=== PATIENT | female | born 1975 | race Caucasian/White ===

== ENCOUNTER 2018-10-14 15:14 | Inpatient (IN) | payer OTHER ==
[~2018-10-14] VITALS: Ht 170.2 cm; Wt 115.7 kg
[~2018-10-14 15:14] MED LIST: BYDUREON P2 MG/0.65; CEFU50SU; Humalog100 UNIT/1 SC; IBUP600 PO; INSULANPEN; METF500 PO; Prinivil10 MG PO; SULTRIDS
[2018-10-14 15:52] LABS: Source, Urine Clean Catch
[2018-10-14 15:53] LABS: Bilirubin, Urine Neg (Neg); Blood, Urine 5+ (Neg); Glucose Qualitative, Urine 4+ (Neg); Ketones, Urine Neg (Neg); Leukocyte Esterase, Urine 3+ (Neg); Nitrite, Urine Neg (Neg); Protein, Urine 3+ (Neg); Urobilinogen, Urine NORM (Normal)
[2018-10-14 16:02] LABS: BASOPHILS ABSOLUTE AUTO 0.04 K/mm3 (0.00-0.23); BASOPHILS PERCENT AUTO 1 % (0-2); EOSINOPHILS ABSOLUTE AUTO 0.15 K/mm3 (0.00-0.68); EOSINOPHILS PERCENT AUTO 2 % (0-6); Hematocrit 42.2 % (33.0-51.0); Hemoglobin 12.1 g/dL (11.5-16.0); IMMATURE GRAN ABSOLUTE AUTO 0.02 K/mm3 (0.00-0.10); IMMATURE GRAN PERCENT AUTO 0 % (0-1); LYMPHOCYTES ABSOLUTE AUTO 0.94 K/mm3 (0.84-5.20); LYMPHOCYTES PERCENT AUTO 13 % (21-46); MONOCYTES ABSOLUTE AUTO 0.57 K/mm3 (0.16-1.47); MONOCYTES PERCENT AUTO 8 % (4-13); Mean Corpuscular HGB 20.1 pg (26.0-34.0); Mean Corpuscular HGB Conc 28.7 g/dL (31.5-36.5); Mean Corpuscular Volume 70 fL (80-100); Mean Platelet Volume 9.9 fL (9.1-12.4); NEUTROPHILS ABSOLUTE AUTO 5.42 K/mm3 (1.96-9.15); NEUTROPHILS PERCENT AUTO 76 % (41-73); Platelet Count 212 K/mm3 (150-400); RDW Coefficient Variation 15.6 % (11.7-14.2); RDW Standard Deviation 38.3 fL (35.1-46.3); Red Blood Cell Count 6.02 M/mm3 (3.80-5.20); White Blood Cell Count 7.14 K/mm3 (4.00-11.30)
[2018-10-14 16:03] LABS: Appearance, Urine Hazy (Clear); Color, Urine Pale Yellow (P-Yellow)
[2018-10-14 16:04] LABS: Bacteria Few /hpf; Mucus Mod (0-Heavy); Squamous Epithelial Cells Mod /hpf (Few); White Blood Cells, Urine TNTC /hpf (0-5)
[2018-10-14 16:44] LABS: Alanine Aminotransfer (ALT/SGP 20 U/L (12-78); Albumin/Globulin Ratio 0.6 (0.8-1.8); Alk Phos 129 U/L (50-136); Anion Gap 11 mmol/L (6-16); Aspartate Aminotrans (AST/SGOT 13 U/L (12-37); Bilirubin, Total 0.3 mg/dL (0.1-1.0); Blood Urea Nitrogen 12 mg/dL (8-24); Bun/Creatinine Ratio 22.1 (12.0-20.0); CO2, Blood 22 mmol/L (21-32); Calcium, Blood 9.3 mg/dL (8.5-10.1); Chloride, Blood 97 mmol/L (98-108); Creatinine, Blood 0.54 mg/dL (0.40-1.00); Glomerular Filtration Rate >60 (60-); Glucose, Blood 492 mg/dL (70-99); Potassium, Blood 3.9 mmol/L (3.5-5.5); Sodium, Blood 130 mmol/L (136-145)
[2018-10-15 05:31] LABS: BASOPHILS ABSOLUTE AUTO 0.03 K/mm3 (0.00-0.23); BASOPHILS PERCENT AUTO 1 % (0-2); EOSINOPHILS ABSOLUTE AUTO 0.17 K/mm3 (0.00-0.68); EOSINOPHILS PERCENT AUTO 3 % (0-6); Hematocrit 37.4 % (33.0-51.0); Hemoglobin 10.7 g/dL (11.5-16.0); IMMATURE GRAN ABSOLUTE AUTO 0.03 K/mm3 (0.00-0.10); IMMATURE GRAN PERCENT AUTO 1 % (0-1); LYMPHOCYTES PERCENT AUTO 23 % (21-46); MONOCYTES PERCENT AUTO 12 % (4-13); Mean Corpuscular HGB 19.9 pg (26.0-34.0); Mean Corpuscular HGB Conc 28.6 g/dL (31.5-36.5); Mean Corpuscular Volume 69 fL (80-100); NEUTROPHILS ABSOLUTE AUTO 3.49 K/mm3 (1.96-9.15); NEUTROPHILS PERCENT AUTO 61 % (41-73); Platelet Count 198 K/mm3 (150-400); RDW Coefficient Variation 15.9 % (11.7-14.2); RDW Standard Deviation 38.5 fL (35.1-46.3); Red Blood Cell Count 5.39 M/mm3 (3.80-5.20); White Blood Cell Count 5.72 K/mm3 (4.00-11.30)
[2018-10-15 05:59] LABS: Anion Gap 7 mmol/L (6-16); Blood Urea Nitrogen 13 mg/dL (8-24); Bun/Creatinine Ratio 21.6 (12.0-20.0); CO2, Blood 27 mmol/L (21-32); Calcium, Blood 8.9 mg/dL (8.5-10.1); Chloride, Blood 100 mmol/L (98-108); Glomerular Filtration Rate >60 (60-); Glucose, Blood 303 mg/dL (70-99); Potassium, Blood 3.6 mmol/L (3.5-5.5); Sodium, Blood 134 mmol/L (136-145)
[2018-10-15] MEDS ORDERED: CEFP200 PO (10:09)
[2018-10-15] MEDS ORDERED: HYDR1TAB94 PO (10:10)
--- NOTE | 2018-10-15 10:46 | NUR ---
SHIFT ASSESSMENT AM SHIFT ASSESSMENT BY ELINOR FINN STUDENT NURSE WAS REVIEWED, THIS RN AGREES WITH ASSESSMENT.
--- NOTE | 2018-10-15 10:57 | NUR ---
VAGINAL BLEEDING PT HAS HAD A SMALL AMOUNT OF VAGINAL BLEEDING THIS AM. DR. LEI WAS NOTIFIED. NO CHANGE IN PT CONDITION. WILL CONTINUE WITH DISCHARGE AND ENCOURAGE PT TO FOLLOW-UP WITH HER PRIMARY CARE PROVIDER.
--- NOTE | 2018-10-15 11:17 | NUR ---
DISCHARGE INSTRUCTIONS PT WAS PROVIDED WITH WRITTEN AND VERBAL DISCHARGE INSTRUCTIONS. SHE REPORTED UNDERSTANDING. PT WAS ENCOURAGED TO FOLLOW UP WITH HER PRIMARY CARE PROVIDER WITHIN 1 WEEK OR SOONER IF SYMPTOMS WORSEN. WILL MONITOR UNTIL PT'S RIDE HOME ARRIVES.
--- NOTE | 2018-10-15 12:49 | NUR ---
DISCHARGE PT LEFT AT APPROXIMATELY 1144. SHE AMBULATED OUT WITH FAMILY.
== END 2018-10-15 11:42 | disposition home or self-care (01) | DRG 690 ==
LOC: ER 15:14 → MEDS 17:37
PROVIDERS: Physician Assistant; ADMIT Internal Medicine
DX: N10 Acute pyelonephritis (principal); E87.1 Hypo-osmolality and hyponatremia; E66.01 Morbid (severe) obesity due to excess calories; I10 Essential (primary) hypertension; E11.65 Type 2 diabetes mellitus with hyperglycemia; K80.20 Calculus of gallbladder without cholecystitis without obstruction
CPT/HCPCS: 36415; 74177; 80048; 80053; 81001; 82947; 83605; 83690; 85025; 87040; 87086; 96361-59; 96374-59; 96375-59; 99285-25; A9270-GY; J0696; J0744; J1650; J2405; J3010; J7030; J7120; Q9967

== ENCOUNTER → 2019-04-23 | Outpatient (CLI) | payer OTHER ==
[~2019-04-23] MED LIST changes: +CEFP200 PO; +HYDR1TAB94 PO
[2019-04-24 15:07] LABS: HPV 16 Negative (Negative); HPV 18 Negative (Negative); HPV OTHER HR TYPES Negative (Negative)
== END | disposition home or self-care (01) ==
LOC: LAB 12:50 → LAB SHORT 12:50
PROVIDERS: Nurse Practitioner Women's Health
DX: Z12.4 Encounter for screening for malignant neoplasm of cervix (principal); Z91.89 Other specified personal risk factors, not elsewhere classified
CPT/HCPCS: 87624; G0123

== ENCOUNTER → 2019-05-20 | Outpatient (CLI) | payer OTHER ==
[2019-05-20 12:03] LABS: BASOPHILS ABSOLUTE AUTO 0.03 K/mm3 (0.00-0.23); BASOPHILS PERCENT AUTO 0 % (0-2); EOSINOPHILS ABSOLUTE AUTO 0.22 K/mm3 (0.00-0.68); EOSINOPHILS PERCENT AUTO 2 % (0-6); Hematocrit 41.7 % (33.0-51.0); Hemoglobin 12.5 g/dL (11.5-16.0); IMMATURE GRAN ABSOLUTE AUTO 0.02 K/mm3 (0.00-0.10); IMMATURE GRAN PERCENT AUTO 0 % (0-1); LYMPHOCYTES ABSOLUTE AUTO 1.52 K/mm3 (0.84-5.20); LYMPHOCYTES PERCENT AUTO 16 % (21-46); MONOCYTES ABSOLUTE AUTO 0.62 K/mm3 (0.16-1.47); MONOCYTES PERCENT AUTO 7 % (4-13); Mean Corpuscular HGB 20.7 pg (26.0-34.0); Mean Corpuscular Volume 69 fL (80-100); Mean Platelet Volume 10.1 fL (9.1-12.4); NEUTROPHILS ABSOLUTE AUTO 6.92 K/mm3 (1.96-9.15); NEUTROPHILS PERCENT AUTO 74 % (41-73); Platelet Count 240 K/mm3 (150-400); RDW Standard Deviation 37.5 fL (35.1-46.3); Red Blood Cell Count 6.03 M/mm3 (3.80-5.20); White Blood Cell Count 9.33 K/mm3 (4.00-11.30)
[2019-05-20 12:20] LABS: Alanine Aminotransfer (ALT/SGP 18 U/L (12-78); Albumin, Blood 3.3 g/dL (3.4-5.0); Albumin/Globulin Ratio 0.7 (0.8-1.8); Alk Phos 147 U/L (40-126); Anion Gap 11 mmol/L (6-16); Aspartate Aminotrans (AST/SGOT 11 U/L (12-37); Bilirubin, Total 0.3 mg/dL (0.1-1.0); Blood Urea Nitrogen 12 mg/dL (8-24); Bun/Creatinine Ratio 15.2 (12.0-20.0); CO2, Blood 25 mmol/L (21-32); Calcium, Blood 9.3 mg/dL (8.5-10.1); Chloride, Blood 97 mmol/L (98-108); Creatinine, Blood 0.79 mg/dL (0.40-1.00); Globulin, Blood 4.8 g/dL (2.2-4.0); Glomerular Filtration Rate >60 (60-); Glucose, Blood 435 mg/dL (70-99); Sodium, Blood 133 mmol/L (136-145); Total Protein, Blood 8.1 g/dL (6.4-8.2)
== END ==
LOC: LAB EV 11:48 → LAB SHORT 11:48
PROVIDERS: Emergency Medicine
DX: N61.0 Mastitis without abscess (principal)
CPT/HCPCS: 80053; 85025

== ENCOUNTER → 2019-09-07 | Outpatient (CLI) | payer OTHER | END | disposition home or self-care (01) | LOC: LAB SHORT 13:14 → LAB 13:14 | DX: Z09 Encounter for follow-up examination after completed treatment for conditions other than malignant neoplasm (principal); Z86.14 Personal history of Methicillin resistant Staphylococcus aureus infection | CPT/HCPCS: 87081 ==

== ENCOUNTER 2020-04-15 17:08 | Emergency (ER) | payer OTHER ==
[~2020-04-15] VITALS: Ht 167.6 cm; Wt 111.1 kg
[2020-04-15 18:33] LABS: Source, Urine Clean Catch
[2020-04-15 18:41] LABS: Bilirubin, Urine Neg (Neg); Blood, Urine 5+ (Neg); Glucose Qualitative, Urine 4+ (Neg); Ketones, Urine 1+ (Neg); Leukocyte Esterase, Urine 3+ (Neg); Nitrite, Urine Neg (Neg); Protein, Urine 2+ (Neg); Urobilinogen, Urine NORM (Normal)
[2020-04-15 18:52] LABS: Appearance, Urine Hazy (Clear); Color, Urine Yellow (P-Yellow)
[2020-04-15 18:53] LABS: Squamous Epithelial Cells Few /hpf (Few); Yeast/Fungi Urine Rare /hpf
[2020-04-15 18:54] LABS: Bacteria Mod /hpf; Hyaline Casts 0-2 /lpf (0-2)
[2020-04-15 19:09] LABS: BASOPHILS ABSOLUTE AUTO 0.02 K/mm3 (0.00-0.23); BASOPHILS PERCENT AUTO 0 % (0-2); EOSINOPHILS ABSOLUTE AUTO 0.03 K/mm3 (0.00-0.68); EOSINOPHILS PERCENT AUTO 1 % (0-6); Hemoglobin 11.7 g/dL (11.5-16.0); IMMATURE GRAN ABSOLUTE AUTO 0.01 K/mm3 (0.00-0.10); IMMATURE GRAN PERCENT AUTO 0 % (0-1); LYMPHOCYTES ABSOLUTE AUTO 0.96 K/mm3 (0.84-5.20); LYMPHOCYTES PERCENT AUTO 21 % (21-46); MONOCYTES ABSOLUTE AUTO 0.38 K/mm3 (0.16-1.47); MONOCYTES PERCENT AUTO 8 % (4-13); Mean Corpuscular HGB 21.4 pg (26.0-34.0); Mean Corpuscular Volume 71 fL (80-100); Mean Platelet Volume 11.1 fL (9.1-12.4); NEUTROPHILS PERCENT AUTO 69 % (41-73); Platelet Count 147 K/mm3 (150-400); RDW Coefficient Variation 15.2 % (11.7-14.2); RDW Standard Deviation 38.8 fL (35.1-46.3); Red Blood Cell Count 5.46 M/mm3 (3.80-5.20)
[2020-04-15 19:27] LABS: Alanine Aminotransfer (ALT/SGP 22 U/L (12-78); Albumin, Blood 2.8 g/dL (3.4-5.0); Albumin/Globulin Ratio 0.7 (0.8-1.8); Alk Phos 115 U/L (50-136); Anion Gap 10 mmol/L (6-16); Aspartate Aminotrans (AST/SGOT 17 U/L (12-37); Bilirubin, Total 0.2 mg/dL (0.1-1.0); Blood Urea Nitrogen 20 mg/dL (8-24); Bun/Creatinine Ratio 23.9 (12.0-20.0); CO2, Blood 21 mmol/L (21-32); Calcium, Blood 8.7 mg/dL (8.5-10.1); Chloride, Blood 104 mmol/L (98-108); Creatinine, Blood 0.84 mg/dL (0.40-1.00); Globulin, Blood 4.3 g/dL (2.2-4.0); Glomerular Filtration Rate >60 (60-); Glucose, Blood 428 mg/dL (70-99); Potassium, Blood 3.7 mmol/L (3.5-5.5); Sodium, Blood 135 mmol/L (136-145); Total Protein, Blood 7.1 g/dL (6.4-8.2)
[2020-04-15 19:35] LABS: Base Excess Venous -3.6 mmol/L; Bicarbonate Venous 21.9 mmol/L (24.0-30.0); PCO2 Venous 33.4 mmHg (38-42); PO2 Venous 127 mmHg (38-42); pH Blood Venous 7.41 (7.34-7.37)
[2020-04-15] MEDS ORDERED: CEFP200 PO (21:40)
== END 2020-04-15 22:38 | disposition home or self-care (01) ==
LOC: ER 17:08
PROVIDERS: Emergency Medicine; Physician Assistant
DX: U07.1 COVID-19 (principal); E11.65 Type 2 diabetes mellitus with hyperglycemia; N39.0 Urinary tract infection, site not specified; R05 Cough; R09.81 Nasal congestion; I10 Essential (primary) hypertension; Z79.4 Long term (current) use of insulin; Z79.899 Other long term (current) drug therapy
CPT/HCPCS: 36415; 71045; 80053; 81001; 82010; 82803; 82947; 85025; 87086; 93005; 93010; 96361; 96365; 99284-25; J0696; J7030; U0003

== ENCOUNTER 2021-01-15 12:20 | Emergency (ER) | payer OTHER ==
[~2021-01-15] VITALS: Ht 167.6 cm; Wt 106.6 kg
[2021-01-15 13:38] LABS: BASOPHILS ABSOLUTE AUTO 0.05 K/mm3 (0.00-0.23); BASOPHILS PERCENT AUTO 1 % (0-2); EOSINOPHILS ABSOLUTE AUTO 0.17 K/mm3 (0.00-0.68); EOSINOPHILS PERCENT AUTO 2 % (0-6); Hemoglobin 12.4 g/dL (11.5-16.0); IMMATURE GRAN ABSOLUTE AUTO 0.05 K/mm3 (0.00-0.10); IMMATURE GRAN PERCENT AUTO 1 % (0-1); LYMPHOCYTES ABSOLUTE AUTO 2.02 K/mm3 (0.84-5.20); LYMPHOCYTES PERCENT AUTO 18 % (21-46); MONOCYTES ABSOLUTE AUTO 0.61 K/mm3 (0.16-1.47); MONOCYTES PERCENT AUTO 6 % (4-13); Mean Corpuscular HGB 22.4 pg (26.0-34.0); Mean Corpuscular HGB Conc 30.2 g/dL (31.5-36.5); Mean Corpuscular Volume 74 fL (80-100); Mean Platelet Volume 9.5 fL (9.1-12.4); NEUTROPHILS PERCENT AUTO 74 % (41-73); Platelet Count 268 K/mm3 (150-400); RDW Coefficient Variation 15.1 % (11.7-14.2); RDW Standard Deviation 39.6 fL (35.1-46.3); Red Blood Cell Count 5.53 M/mm3 (3.80-5.20)
[2021-01-15 14:00] LABS: Alanine Aminotransfer (ALT/SGP 16 U/L (12-78); Albumin, Blood 3.2 g/dL (3.4-5.0); Albumin/Globulin Ratio 0.7 (0.8-1.8); Alk Phos 108 U/L (50-136); Anion Gap 8 mmol/L (6-16); Aspartate Aminotrans (AST/SGOT 6 U/L (12-37); Bilirubin, Total 0.3 mg/dL (0.1-1.0); Blood Urea Nitrogen 14 mg/dL (8-24); Bun/Creatinine Ratio 21.1 (12.0-20.0); CO2, Blood 24 mmol/L (21-32); Calcium, Blood 9.8 mg/dL (8.5-10.1); Chloride, Blood 105 mmol/L (98-108); Creatinine, Blood 0.67 mg/dL (0.40-1.00); Globulin, Blood 4.5 g/dL (2.2-4.0); Glomerular Filtration Rate >60 (60-); Glucose, Blood 220 mg/dL (70-99); Potassium, Blood 3.7 mmol/L (3.5-5.5); Sodium, Blood 137 mmol/L (136-145); Total Protein, Blood 7.7 g/dL (6.4-8.2)
== END 2021-01-15 15:54 | disposition home or self-care (01) ==
LOC: ER 12:20
PROVIDERS: Physician Assistant
DX: H49.11 Fourth [trochlear] nerve palsy, right eye (principal); H53.2 Diplopia; E11.9 Type 2 diabetes mellitus without complications; I10 Essential (primary) hypertension
CPT/HCPCS: 36415; 70553; 80053; 85025; 99284-25; A9579

== ENCOUNTER → 2021-09-08 | Outpatient (CLI) | payer OTHER ==
[2021-09-09 15:01] LABS: Adenovirus F 40/41 Not Detected (NOT DETECT); Astrovirus Not Detected (NOT DETECT); Campylobacter Sp Not Detected (NOT DETECT); Cryptosporidium Not Detected (NOT DETECT); Cyclospora Cayetanensis Not Detected (NOT DETECT); E. Coli O157 Not Detected (NOT DETECT); Entamoeba Histolytica Not Detected (NOT DETECT); Enteroaggregative E. coli-EAEC Not Detected (NOT DETECT); Enteropathogenic E. coli-EPEC Not Detected (NOT DETECT); Enterotoxigenic E. coli-ETEC Not Detected (NOT DETECT); Giardia Lamblia Not Detected (NOT DETECT); Norovirus GI/GII Not Detected (NOT DETECT); Plesiomonas Shigelloides Not Detected (NOT DETECT); Rotavirus A Not Detected (NOT DETECT); Salmonella Sp Not Detected (NOT DETECT); Sapovirus Not Detected (NOT DETECT); Shiga Toxin-prod E. coli-STEC Not Detected (NOT DETECT); Shigella/Enteroin E. coli-EIEC Not Detected (NOT DETECT); Vibrio Cholerae Not Detected (NOT DETECT); Vibrio Sp Not Detected (NOT DETECT); Yersinia Enterocolitica Not Detected (NOT DETECT)
== END | disposition home or self-care (01) ==
LOC: LAB 11:27 → LAB SHORT 09-09 11:27
PROVIDERS: Physician Assistant Medical
DX: K52.9 Noninfective gastroenteritis and colitis, unspecified (principal)
CPT/HCPCS: 0097U

== ENCOUNTER 2021-12-01 10:47 | Day surgery (SDC) | payer OTHER ==
[~2021-12-01] VITALS: Ht 162.6 cm; Wt 118.8 kg
--- NOTE | 2021-12-01 11:38 | NUR ---
12/01/21 1138 SHERRY SAUCEDO MA MISSED FIRST ONE IN RH AND TRIED AGAIN IN RW AND IT INFILTRATED. CORAL GOT IT IN LH AND WORKED WELL.
== END 2021-12-01 11:50 | disposition home or self-care (01) ==
LOC: ORSCSDS 10:47
DX: K52.9 Noninfective gastroenteritis and colitis, unspecified (principal); Z53.9 Procedure and treatment not carried out, unspecified reason
CPT/HCPCS: 82947; J7120

== ENCOUNTER → 2021-12-01 | Outpatient (CLI) | payer OTHER ==
[~2021-12-01] MED LIST changes: +ABILIFY MYCITE5 M2 PO; +ALOGLIPTIN25 M1 PO; +ESCI20 PO; +HUMALOG KW100 UNIT/1; +Lamictal100 MG PO
[2021-12-01 13:49] LABS: BASOPHILS ABSOLUTE AUTO 0.04 K/mm3 (0.00-0.23); BASOPHILS PERCENT AUTO 0 % (0-2); EOSINOPHILS ABSOLUTE AUTO 0.14 K/mm3 (0.00-0.68); EOSINOPHILS PERCENT AUTO 1 % (0-6); Hematocrit 42.6 % (33.0-51.0); Hemoglobin 13.5 g/dL (11.5-16.0); IMMATURE GRAN ABSOLUTE AUTO 0.03 K/mm3 (0.00-0.10); IMMATURE GRAN PERCENT AUTO 0 % (0-1); LYMPHOCYTES ABSOLUTE AUTO 1.59 K/mm3 (0.84-5.20); LYMPHOCYTES PERCENT AUTO 16 % (21-46); MONOCYTES ABSOLUTE AUTO 0.52 K/mm3 (0.16-1.47); MONOCYTES PERCENT AUTO 5 % (4-13); Mean Corpuscular HGB 23.8 pg (26.0-34.0); Mean Corpuscular HGB Conc 31.7 g/dL (31.5-36.5); Mean Corpuscular Volume 75 fL (80-100); NEUTROPHILS ABSOLUTE AUTO 7.48 K/mm3 (1.96-9.15); NEUTROPHILS PERCENT AUTO 76 % (41-73); Platelet Count 251 K/mm3 (150-400); RDW Coefficient Variation 14.5 % (11.7-14.2); RDW Standard Deviation 38.3 fL (35.1-46.3); Red Blood Cell Count 5.67 M/mm3 (3.80-5.20)
[2021-12-01 13:56] LABS: Albumin, Blood 3.1 g/dL (3.4-5.0); Anion Gap 8 mmol/L (6-16); Blood Urea Nitrogen 13 mg/dL (8-24); Bun/Creatinine Ratio 10.8 (12.0-20.0); CO2, Blood 27 mmol/L (21-32); Calcium, Blood 8.7 mg/dL (8.5-10.1); Chloride, Blood 96 mmol/L (98-108); Glomerular Filtration Rate 57 (60-); Glucose, Blood 560 mg/dL (70-99); Magnesium, Blood 1.6 mg/dL (1.6-2.4); Phosphorus, Blood 2.1 mg/dL (2.5-4.9); Potassium, Blood 3.9 mmol/L (3.5-5.5); Sodium, Blood 131 mmol/L (136-145)
== END | disposition home or self-care (01) ==
LOC: LAB SHORT 13:43 → LAB 13:43
PROVIDERS: Chiropractor
DX: D64.9 Anemia, unspecified (principal)
CPT/HCPCS: 80069; 83735; 85025

== ENCOUNTER → 2023-02-07 | Outpatient (CLI) | payer OTHER | LOC: LAB SHORT 17:54 → LAB 17:54 | DX: T14.8XXA Other injury of unspecified body region, initial encounter (principal) | CPT/HCPCS: 87070; 87075; 87077; 87186; 87205 ==

== ENCOUNTER 2024-03-07 14:11 | Emergency (ER) | payer OTHER ==
[~2024-03-07] VITALS: Ht 162.6 cm; Wt 104.8 kg
[2024-03-07 14:49] LABS: BASOPHILS ABSOLUTE AUTO 0.09 K/mm3 (0.00-0.23); BASOPHILS PERCENT AUTO 1 % (0-2); EOSINOPHILS ABSOLUTE AUTO 0.57 K/mm3 (0.00-0.68); EOSINOPHILS PERCENT AUTO 6 % (0-6); Hematocrit 49.2 % (33.0-51.0); Hemoglobin 15.2 g/dL (11.5-16.0); IMMATURE GRAN ABSOLUTE AUTO 0.17 K/mm3 (0.00-0.10); IMMATURE GRAN PERCENT AUTO 2 % (0-1); LYMPHOCYTES ABSOLUTE AUTO 2.13 K/mm3 (0.84-5.20); LYMPHOCYTES PERCENT AUTO 20 % (21-46); MONOCYTES ABSOLUTE AUTO 0.71 K/mm3 (0.16-1.47); MONOCYTES PERCENT AUTO 7 % (4-13); Mean Corpuscular HGB 25.8 pg (26.0-34.0); Mean Corpuscular HGB Conc 30.9 g/dL (31.5-36.5); Mean Corpuscular Volume 84 fL (80-100); NEUTROPHILS ABSOLUTE AUTO 6.76 K/mm3 (1.96-9.15); NEUTROPHILS PERCENT AUTO 65 % (41-73); RDW Coefficient Variation 13.5 % (11.7-14.2); Red Blood Cell Count 5.89 M/mm3 (3.80-5.20); White Blood Cell Count 10.43 K/mm3 (4.00-11.30)
[2024-03-07 15:06] LABS: Albumin/Globulin Ratio 0.7 (0.8-1.8); Bilirubin, Total 0.3 mg/dL (0.1-1.0); Bun/Creatinine Ratio 26.7 (12.0-20.0); Creatinine, Blood 0.56 mg/dL (0.40-1.00); Globulin, Blood 4.6 g/dL (2.2-4.0); Potassium, Blood 4.7 mmol/L (3.5-5.5); Total Protein, Blood 7.6 g/dL (6.4-8.2)
[2024-03-07 16:00] VITALS: BP 121/95
[2024-03-07 16:05] LABS: Platelet Count 221 K/mm3 (150-400)
== END 2024-03-07 16:35 | disposition home or self-care (01) ==
LOC: ER 14:11
PROVIDERS: Student in an Organized Health Care Education/Training Program
DX: R07.89 Other chest pain (principal); E11.9 Type 2 diabetes mellitus without complications; I10 Essential (primary) hypertension; Z79.84 Long term (current) use of oral hypoglycemic drugs; Z79.4 Long term (current) use of insulin; Z79.899 Other long term (current) drug therapy; Z88.8 Allergy status to other drugs, medicaments and biological substances
CPT/HCPCS: 71046; 80053; 83690; 84484; 85025; 93005; 93010; 99285-25

== ENCOUNTER 2024-09-04 09:46 | Inpatient (IN) | payer OTHER ==
[~2024-09-04] VITALS: Ht 162.6 cm; Wt 98.7 kg
[2024-09-04] VITALS (20 sets, daily range): BP systolic 98–179; BP diastolic 75–134
[~2024-09-04 09:46] MED LIST changes: -HUMALOG KW100 UNIT/1; +HUMALOG KW100 UNIT/1 SC; +INSULANPEN SC
[2024-09-04 10:34] LABS: BASOPHILS ABSOLUTE AUTO 0.05 K/mm3 (0.00-0.23); BASOPHILS PERCENT AUTO 0 % (0-2); EOSINOPHILS PERCENT AUTO 0 % (0-6); Hematocrit 49.1 % (33.0-51.0); Hemoglobin 16.3 g/dL (11.5-16.0); IMMATURE GRAN ABSOLUTE AUTO 0.07 K/mm3 (0.00-0.10); IMMATURE GRAN PERCENT AUTO 1 % (0-1); LYMPHOCYTES ABSOLUTE AUTO 0.85 K/mm3 (0.84-5.20); LYMPHOCYTES PERCENT AUTO 6 % (21-46); MONOCYTES ABSOLUTE AUTO 0.47 K/mm3 (0.16-1.47); MONOCYTES PERCENT AUTO 4 % (4-13); Mean Corpuscular HGB 26.7 pg (26.0-34.0); Mean Corpuscular HGB Conc 33.2 g/dL (31.5-36.5); Mean Corpuscular Volume 81 fL (80-100); Mean Platelet Volume 10.4 fL (9.1-12.4); NEUTROPHILS ABSOLUTE AUTO 12.14 K/mm3 (1.96-9.15); NEUTROPHILS PERCENT AUTO 89 % (41-73); Platelet Count 279 K/mm3 (150-400); RDW Coefficient Variation 13.3 % (11.7-14.2); RDW Standard Deviation 38.1 fL (35.1-46.3); White Blood Cell Count 13.58 K/mm3 (4.00-11.30)
[2024-09-04 11:36] LABS: Source, Urine Clean Catch
[2024-09-04 11:41] LABS: Albumin, Blood 2.9 g/dL (3.4-5.0); Albumin/Globulin Ratio 0.8 (0.8-1.8); Bilirubin, Total 1.1 mg/dL (0.1-1.0); Bun/Creatinine Ratio 35.7 (12.0-20.0); Calcium, Blood 9.3 mg/dL (8.5-10.1); Creatinine, Blood 0.87 mg/dL (0.40-1.00); Globulin, Blood 3.8 g/dL (2.2-4.0); Potassium, Blood 5.5 mmol/L (3.5-5.5); Total Protein, Blood 6.7 g/dL (6.4-8.2)
[2024-09-04] MEDS ORDERED: Insulin Human Regular 100 UNIT in NS 100 ML IV SCH (11:45)
[2024-09-04] MEDS ORDERED: NS 1,000 ML IV SCH ×2 (11:45→15:00)
[2024-09-04 11:49] LABS: Appearance, Urine Hazy (Clear); Bilirubin, Urine Neg (Neg); Blood, Urine 1+ (Neg); Glucose Qualitative, Urine 4+ (Neg); Ketones, Urine 3+ (Neg); Leukocyte Esterase, Urine 3+ (Neg); Nitrite, Urine Neg (Neg); Protein, Urine Neg (Neg); Urobilinogen, Urine NORM (Normal)
[2024-09-04 11:57] LABS: Color, Urine Pale Yellow (P-Yellow)
[2024-09-04 12:07] LABS: White Blood Cells, Urine 50-100 /hpf (0-5)
[2024-09-04 12:08] LABS: Bacteria Mod /hpf; Mucus Light (0-Heavy); Red Blood Cells, Urine 0-2 /hpf (0-2); Squamous Epithelial Cells Many /hpf (Few); Yeast/Fungi Urine Few /hpf
[2024-09-04] MEDS ORDERED: DULOXETINE HCL60 M1 PO (12:27)
[2024-09-04] MEDS ORDERED: STEGLATRO15 MG PO (12:27)
[2024-09-04] MEDS ORDERED: Oxybutynin Chlo10 MG PO (12:27)
[2024-09-04] MEDS ORDERED: ARIPIPRAZOLE15 M3 PO (12:27)
[2024-09-04] MEDS ORDERED: OZEMPIC2 MG/0.75 SC (12:28)
[2024-09-04] MEDS ORDERED: DiphenhydrAMINE HCl 50 MG/ML 1ML Vial IV ONE (12:30)
[2024-09-04] MEDS ORDERED: Ondansetron HCl 2 MG / ML 2ML Vial IV ONE (12:30)
[2024-09-04] MEDS ORDERED: Ondansetron HCl 2 MG / ML 2ML Vial IV PRN (14:05)
[2024-09-04] MEDS ORDERED: Magnesium Hydroxide Conc 10 ML UDC PO PRN (14:10)
[2024-09-04] MEDS ORDERED: FLU VACC TS2024-25(6MOS UP)/PF 45 MCG/0.5 ML SYRINGE IM ONE (14:10)
[2024-09-04] MEDS ORDERED: Dextrose 50% 50 ML Vial IV PRN (14:15)
[2024-09-04 14:48] LABS: Glucose, Blood 558 mg/dL (70-99)
[2024-09-04] MEDS ORDERED: DiphenhydrAMINE HCl 50 MG Cap PO PRN (15:55)
--- NOTE | 2024-09-04 17:53 | NUR ---
TRANSFER OF CARE THIS PT WAS TRANSFERED TO ICU 2 AT APPROXIMATELY 1750 AND THIS RN ASSUMED CARE AT THAT TIME. PT STOOD AND WALKED TO THE BED. PT DENIES ANY PAIN AT THIS TIME. BG CURRENTLY 423. HR IS 120'S WITH 02 SAT ABOVE 93% ON RA WITH BP 140S/80'S. WILL CONTINUE WITH THE PLAN OF CARE.
[2024-09-04 18:29] LABS: Base Excess Venous -8.3 mmol/L; Bicarbonate Venous 18.4 mmol/L (24.0-30.0); PCO2 Venous 35.3 mmHg (38-42); pH Blood Venous 7.31 (7.34-7.37)
[2024-09-04 18:56] LABS: Bun/Creatinine Ratio 44.3 (12.0-20.0); Calcium, Blood 9.4 mg/dL (8.5-10.1); Creatinine, Blood 0.68 mg/dL (0.40-1.00); Potassium, Blood 4.2 mmol/L (3.5-5.5)
[2024-09-04] MEDS ORDERED: Lactated Ringer's 1,000 ML IV SCH (19:30)
[2024-09-04 20:52] LABS: Bun/Creatinine Ratio 40.2 (12.0-20.0); Calcium, Blood 9.1 mg/dL (8.5-10.1); Creatinine, Blood 0.72 mg/dL (0.40-1.00); Potassium, Blood 4.2 mmol/L (3.5-5.5)
[2024-09-04] MEDS ORDERED: Docusate Sodium 100 MG Cap PO SCH (21:00)
[2024-09-04] MEDS ORDERED: D5W-1/2NS 1,000 ML IV SCH (23:45)
[2024-09-05] VITALS (60 sets, daily range): BP systolic 89–179; BP diastolic 58–155
[2024-09-05 00:52] LABS: Bun/Creatinine Ratio 45.1 (12.0-20.0); Calcium, Blood 9.3 mg/dL (8.5-10.1); Creatinine, Blood 0.6 mg/dL (0.40-1.00); Potassium, Blood 4.2 mmol/L (3.5-5.5)
--- NOTE | 2024-09-05 02:54 | NUR ---
UPDATE 1899 ASSUMED CARE OF PT AT THIS TIME, PT AWAKE AND ALERT ORIENTED X4, ABLE TO MAKE NEEDS KNOWN, FOLLOWS COMMANDS, ST, BP STABLE, MAP >65, AFEBRILE, PIV TO RIGHT HAND AND LEFT AC PATENT WITH INSULIN INFUSING AT 4 UNITS/HR, PUREWICK IN PLACE, C/O NAUSEA AND ABD PAIN RATED AT 3 ON SCALE OF 0-10 1929 CALLED AND SPOKE WITH MD REGARDING LAB RESULTS AND NO FLUIDS INFUSING, NEW ORDER RECEIVED FOR LR AT 200 ML/HR 2344 CBG BELOW 250, CALLED AND NOTIFIED MD WITH NEW ORDERS RECEIVED FOR D5 1/2 NS AT 200 ML/HR 2349 PT YELLING OUT "I THREW UP", ON ENTERING ROOM, PT LYING IN BED WITH VOMIT ON GOWN, BED AND ON FLOOR, PT STATES" IM SORRY I WOKE UP AND HAD TO THROW UP SO I THREW UP ON THE FLOOR", LARGE AMOUNT OF GREEN LIQUID BILE ON FLOOR, PT GIVEN COMPLETE BEDBATH, GOWN AND SHEETS CHANGED, PT INCONTINENT OF SM BM, BRIEF AND PUREWICK CHANGED, PT TOLERATED WELL, MEDICATED WITH 4 MG ZOFRAN IVP FOR NAUSEA AND VOMITING AND EMESIS BAG PLACED IN BED WITH PT 0245 PT AGAIN VOMITED ON FLOOR, LARGE AMOUNT OF LIQUID GREEN BILE, ENCOURAGED PT TO USE EMESIS BAG IN BED WITH HER AND PLACED BAG IN PT HAND, PT VOICES UNDERSTANDING BUT DOES STATE THAT SHE SOMETIMES DOES THIS TIMEM, PT GIVEN COOL RAG FOR HEAD AND ORAL CARE WITH MOUTH SWABS DONE
[2024-09-05 04:29] LABS: BASOPHILS ABSOLUTE AUTO 0.03 K/mm3 (0.00-0.23); BASOPHILS PERCENT AUTO 0 % (0-2); EOSINOPHILS ABSOLUTE AUTO 0.01 K/mm3 (0.00-0.68); EOSINOPHILS PERCENT AUTO 0 % (0-6); Hematocrit 45.8 % (33.0-51.0); Hemoglobin 15.6 g/dL (11.5-16.0); IMMATURE GRAN ABSOLUTE AUTO 0.04 K/mm3 (0.00-0.10); IMMATURE GRAN PERCENT AUTO 0 % (0-1); LYMPHOCYTES ABSOLUTE AUTO 1.37 K/mm3 (0.84-5.20); LYMPHOCYTES PERCENT AUTO 12 % (21-46); MONOCYTES ABSOLUTE AUTO 0.42 K/mm3 (0.16-1.47); MONOCYTES PERCENT AUTO 4 % (4-13); Mean Corpuscular HGB 26.3 pg (26.0-34.0); Mean Corpuscular HGB Conc 34.1 g/dL (31.5-36.5); Mean Corpuscular Volume 77 fL (80-100); Mean Platelet Volume 9.7 fL (9.1-12.4); NEUTROPHILS ABSOLUTE AUTO 9.46 K/mm3 (1.96-9.15); NEUTROPHILS PERCENT AUTO 83 % (41-73); Platelet Count 272 K/mm3 (150-400); RDW Coefficient Variation 13.5 % (11.7-14.2); RDW Standard Deviation 37.2 fL (35.1-46.3); Red Blood Cell Count 5.93 M/mm3 (3.80-5.20); White Blood Cell Count 11.33 K/mm3 (4.00-11.30)
[2024-09-05 04:59] LABS: Beta-hydroxybutyrate 0.7 mg/dL (0.2-2.8)
[2024-09-05 05:00] LABS: Albumin, Blood 2.4 g/dL (3.4-5.0); Albumin/Globulin Ratio 0.8 (0.8-1.8); Bilirubin, Total 0.5 mg/dL (0.1-1.0); Bun/Creatinine Ratio 46.2 (12.0-20.0); Calcium, Blood 9.3 mg/dL (8.5-10.1); Creatinine, Blood 0.54 mg/dL (0.40-1.00); Globulin, Blood 3.1 g/dL (2.2-4.0); Potassium, Blood 3.9 mmol/L (3.5-5.5); Total Protein, Blood 5.5 g/dL (6.4-8.2)
[2024-09-05 05:32] LABS: PCO2 Arterial 31.1 mmHg (35-45); PO2 Arterial 85.5 mmHg (80-100); pH Blood Arterial 7.45 (7.35-7.45)
[2024-09-05] MEDS ORDERED: Trospium Chloride 20 MG Tab PO SCH (06:00)
--- NOTE | 2024-09-05 06:09 | NUR ---
SHIFT SUMMARY PT ALERT AND ORIENTED X4, FOLLOWS COMMANDS,ABLE TO MAKE NEEDS KNOWN, ST 110-120s, SBP 120-150s, AFEBRILE, ON RA, RESP EVEN AND UNLABORED, DENIES SOB OR CP, INCONTINENT OF URINE WITH PUREWICK IN PLACE, URINE CLOUDY YELLOW, NOTED RED RAISED RASH ALL OVER BODY INCLUDING HEAD AND FACE, PERIAREA RED AND EXCORIATED FROM INCONTINENCE, INCONTINENT X1 BM, PT REMAINS NAUSEATED AND VOMITING X3, MEDICATED WITH ZOFRAN X1, CONTINUES TO C/O ABD PAIN RATED AT 3 ON SCALE OF 0-10, STATES " IT SEEMS TO BE GETTING BETTER" INSULIN INFUSING PER DKA MANAGEMENT, D5 1/2 NS INFUSING AT 150 ML/HR, POWERGLIDE TO RIGHT UPPER ARM PATENT, PIV TO RIGHT HAND AND LEFT AC PATENT, SIDE RAILS UP X2 CALL LIGHT IN REACH, EMESIS BAG IN BED WITH PT IN REACH
--- NOTE | 2024-09-05 07:19 | NUR ---
ASSUMPTION OF CARE: ASSUMED CARE OF PATIENT. PATIENT RESTING IN BED. SHE REPORTS ONGOING NAUSEA WITH MOST RECENT EMESIS AROUND 0600. PATIENT REPORTS IMPROVEMENT OF ABDOMINAL PAIN. VITALS ARE STABLE WITH SBPS IN THE 120S-140S. HR CURRENTLY IN THE 110S. NIGHT RN REPORTS HR IN THE 120S-130S OVERNIGHT. SPO2 90% ON ROOM AIR. COOL CLOTH PROVIDED PER PATIENT REQUEST. INSULIN GTT AT 6.4 UNITS/HR. D5 1/2NS INFUSING AT 200 ML/HR.
[2024-09-05] MEDS ORDERED: Promethazine HCl 25 MG Tab PO PRN (08:05)
[2024-09-05] MEDS ORDERED: Enoxaparin 40 MG/0.4 ML SYR SC SCH (09:00)
[2024-09-05] MEDS ORDERED: Insulin Glargine-Yfgn 100 Unit/mL 3 ML SYR SC SCH (09:00)
[2024-09-05] MEDS ORDERED: LamoTRIgine 100 MG Tab PO SCH (09:00)
[2024-09-05] MEDS ORDERED: DULoxetine HCL 60 MG Capsule DR PO SCH (09:00)
[2024-09-05] MEDS ORDERED: Citalopram Hydrobromide 20 MG Tab PO SCH (09:00)
[2024-09-05] MEDS ORDERED: ARIPiprazole 5 MG Tab PO SCH (09:00)
[2024-09-05] MEDS ORDERED: Lisinopril 10 MG Tab PO SCH (09:00)
[2024-09-05 10:52] LABS: Bun/Creatinine Ratio 42.7 (12.0-20.0); Calcium, Blood 8.4 mg/dL (8.5-10.1); Creatinine, Blood 0.54 mg/dL (0.40-1.00); Potassium, Blood 3.7 mmol/L (3.5-5.5)
[2024-09-05] MEDS ORDERED: Insulin Human Lispro 100 Units/ML 3ML Syringe SC SCH (16:45)
--- NOTE | 2024-09-05 19:10 | NUR ---
SHIFT SUMMARY: NEURO: PATIENT ALERT AND ORIENTED X4. SOME REPETITION OF INFORMATION AND EDUCATION REQUIRED. PATIENT ABLE TO MAKE NEEDS KNOWN. DENIES NUMBNESS/TINGLING. RESPIRATORY: PATIENT STABLE ON ROOM AIR WITH SPO2 >90%. PATIENT DENIED SHORTNESS OF BREATH THROUGHOUT THE SHIFT. CARDIAC: VITALS STABLE WITH MAPS >65. HR IN THE 100-110S. THROUGHOUT THE SHIFT. PATIENT DENIED DIZZINESS. GI: PATIENT TRANSITIONED OFF OF THE INSULIN GTT AT 12:40. PATIENT HAD BEEN ABLE TO TOLERATE A JELLO, PUDDING, ROXANE CRACKERS AND DIET PEPSI. ONCE LUNCH BROUGHT TO PATIENT, SHE HAD ANOTHER BOUGHT OF EMESIS. DR. SAENZ NOTIFIED, AND STOPPING THE INSULIN GTT PER PROTOCOL CONTINUED. PATIENT ABLE TO TOLERATE SIPS OF WATER AND DIET PEPSI FOR THE REST OF THE AFTERNOON WITH ONE SMALL EMESIS AT 16:30. MEDICATED PER PRNS FOR NAUSEA/VOMITING. PATIENT REPORTED THAT SHE HAS BEEN HAVING NAUSEA/VOMITING AT HOME RELATED TO HER GALLBLADDER (SURGERY HAS BEEN POSTPONED UNTIL HER BLOOD SUGARS ARE MAINTAINING LESS THAN 150 PER THE PATIENT'S MOTHER). : PATIENT INCONTINENT. PUREWICK IN PLACE. DARK YELLOW CLOUDY URINE. NO FOUL ODOR. PSYCHSOCIAL: PATIENT CALM AND COOPERATIVE. FLAT AFFECT AT TIMES. PATIENT ABLE TO MAKE NEEDS KNOWN. PATIENT'S MOTHER AT BEDSIDE DURING PART OF THE DAY. PATIENT REFERS TO HER HER "CAREGIVER", BUT IT DOES NOT APPEAR THAT THEY LIVE TOGETHER.
[2024-09-06 00:03] VITALS: BP 126/80
--- NOTE | 2024-09-06 00:33 | NUR ---
PT ARRIVED FROM ICU TO PCU 04 AT SHIFT 2000. PT A&OX4. VSS ON RA >97%. PT STATES SHES FEELING BETTER. NO N/V AT THIS TIME. PT ABLE TO AMBULATE FROM WC TO BED WITH SBA. CBG CHECKED AT ARRIVAL, 293. 25U GLARGINE AND 3U SHORT ACTING GIVEN PER MAR. PT WAS TAKEN OF INSULIN DRIP AT NOON AND SWITCHED TO AC&HS. THIS NURSE TOOK ANOTHER CBG @ MIDNIGHT WHICH WAS 265. NOTIFIED AND ASKED IF WE COULD SWITCH HER TO Q4HR CBG. ORDERS PLACED ALONG WITH THE SWITCH FROM LOW SLIDING SCALE TO MEDIUM SLIDING SCALE. WILL CONTINUE WITH PLAN OF CARE AND RECHECK BG @ 0400. NO FURTHER QUESTIONS OR CONCERNS AT THIS TIME.
[2024-09-06 03:40] VITALS: BP 156/85
[2024-09-06 04:00] LABS: BASOPHILS ABSOLUTE AUTO 0.02 K/mm3 (0.00-0.23); BASOPHILS PERCENT AUTO 0 % (0-2); EOSINOPHILS ABSOLUTE AUTO 0.12 K/mm3 (0.00-0.68); EOSINOPHILS PERCENT AUTO 1 % (0-6); Hematocrit 40.7 % (33.0-51.0); Hemoglobin 13.6 g/dL (11.5-16.0); IMMATURE GRAN ABSOLUTE AUTO 0.03 K/mm3 (0.00-0.10); IMMATURE GRAN PERCENT AUTO 0 % (0-1); LYMPHOCYTES ABSOLUTE AUTO 1.43 K/mm3 (0.84-5.20); LYMPHOCYTES PERCENT AUTO 17 % (21-46); MONOCYTES ABSOLUTE AUTO 0.42 K/mm3 (0.16-1.47); MONOCYTES PERCENT AUTO 5 % (4-13); Mean Corpuscular HGB 26.6 pg (26.0-34.0); Mean Corpuscular HGB Conc 33.4 g/dL (31.5-36.5); Mean Corpuscular Volume 80 fL (80-100); Mean Platelet Volume 9.8 fL (9.1-12.4); NEUTROPHILS ABSOLUTE AUTO 6.38 K/mm3 (1.96-9.15); NEUTROPHILS PERCENT AUTO 76 % (41-73); Platelet Count 216 K/mm3 (150-400); Red Blood Cell Count 5.12 M/mm3 (3.80-5.20)
[2024-09-06] MEDS ORDERED: Insulin Human Lispro 100 Units/ML 3ML Syringe SC ONE (04:05)
[2024-09-06 04:19] LABS: Albumin, Blood 2.2 g/dL (3.4-5.0); Albumin/Globulin Ratio 0.7 (0.8-1.8); Bilirubin, Total 0.7 mg/dL (0.1-1.0); Calcium, Blood 8.6 mg/dL (8.5-10.1); Creatinine, Blood 0.56 mg/dL (0.40-1.00); Globulin, Blood 3.2 g/dL (2.2-4.0); Potassium, Blood 4.2 mmol/L (3.5-5.5); Total Protein, Blood 5.4 g/dL (6.4-8.2)
--- NOTE | 2024-09-06 04:48 | NUR ---
SHIFT SUMMARY PT REMAINS A&OX4. VSS ON RA. PT RESTING COMFORTABLY IN BED. NO N/V THROUGHOUT NIGHT. PT HAS PUREWICK ATTACHED DRAINING CLEAR YELLOW URINE. CBG's CHECKED Q4HR. 0400 CBG RESULTED 287. NOTIFIED AND PLACED AN ORDER FOR 5 UNITS ONCE. ADMINISTERED AND WILL RECHECK CBG @ 0730. WILL CONTINUE WITH PLAN OF CARE AND REPORT TO ONCOMING NURSE.
[2024-09-06] MEDS ORDERED: Insulin Human Lispro 100 Units/ML 3ML Syringe SC SCH (07:30)
[2024-09-06 08:11] VITALS: BP 140/79
--- NOTE | 2024-09-06 09:49 | NUR ---
am note this rn assumed care at 0700. vital signs stable. tele sinus tach 110s-120s. patient is alert and oriented x4. neuro is intact. patient is able to make needs known and uses call light appropriately. patient is independent in adls and calls for assistance when getting up for safety. denies pain, chest pain/pressure or shortness of breath. patient has red rash scattered throughout her body. see shift assessment for further detials. patient had shower this am and linen changed.
--- NOTE | 2024-09-06 09:53 | NUR ---
Pt. is awake in bed when she welcomes my visit. Pt. is pleasant but unsettled by the unknowns of her condition and uncertain plan of care. Listen with emptathy and a calming presence. Facilitate a life review. Pt. displays evidence of awareness and engagement. Prayed with Pt. Pt. verbalized gratitude for the spiritual care visit.
[2024-09-06 12:01] VITALS: BP 115/68
[2024-09-06 15:46] VITALS: BP 107/60
--- NOTE | 2024-09-06 16:12 | NUR ---
PTis alert and oriented x4 and has remained stable throughout shift. She is able to perform ADLs independently and uses call light when necessary. PT vital signs have remained stable and WNL with no significant changes in her condition. Pt has a scattered rash all over her body and has complained of moderate itchiness, she received 50mg of Diphenhydramine once *see eMAR. Pt showered today and her family came to visit.
--- NOTE | 2024-09-06 17:04 | NUR ---
shift summary patient vital signs remain stable. patient neuro remains intact and unchanged. no acute changes this shift. blood sugars in the high 200s, see lab section for blood glucose levels, and medicated on a medium sliding scale. plan remains up to date.
[2024-09-06 19:41] VITALS: BP 128/79
[2024-09-07 00:25] VITALS: BP 125/76
[2024-09-07 03:49] VITALS: BP 119/81
[2024-09-07 04:16] LABS: BASOPHILS ABSOLUTE AUTO 0.01 K/mm3 (0.00-0.23); BASOPHILS PERCENT AUTO 0 % (0-2); EOSINOPHILS ABSOLUTE AUTO 0.04 K/mm3 (0.00-0.68); EOSINOPHILS PERCENT AUTO 1 % (0-6); Hematocrit 39.6 % (33.0-51.0); Hemoglobin 13.3 g/dL (11.5-16.0); IMMATURE GRAN ABSOLUTE AUTO 0.04 K/mm3 (0.00-0.10); IMMATURE GRAN PERCENT AUTO 1 % (0-1); LYMPHOCYTES PERCENT AUTO 19 % (21-46); MONOCYTES ABSOLUTE AUTO 0.26 K/mm3 (0.16-1.47); MONOCYTES PERCENT AUTO 3 % (4-13); Mean Corpuscular HGB 26.8 pg (26.0-34.0); Mean Corpuscular HGB Conc 33.6 g/dL (31.5-36.5); Mean Corpuscular Volume 80 fL (80-100); Mean Platelet Volume 9.6 fL (9.1-12.4); NEUTROPHILS ABSOLUTE AUTO 6.28 K/mm3 (1.96-9.15); NEUTROPHILS PERCENT AUTO 77 % (41-73); Platelet Count 181 K/mm3 (150-400); RDW Coefficient Variation 14.1 % (11.7-14.2); RDW Standard Deviation 40.3 fL (35.1-46.3); Red Blood Cell Count 4.96 M/mm3 (3.80-5.20); White Blood Cell Count 8.13 K/mm3 (4.00-11.30)
[2024-09-07 04:49] LABS: Albumin, Blood 2.1 g/dL (3.4-5.0); Albumin/Globulin Ratio 0.7 (0.8-1.8); Bilirubin, Total 0.6 mg/dL (0.1-1.0); Bun/Creatinine Ratio 40.9 (12.0-20.0); Calcium, Blood 8.5 mg/dL (8.5-10.1); Creatinine, Blood 0.51 mg/dL (0.40-1.00); Globulin, Blood 3.2 g/dL (2.2-4.0); Potassium, Blood 3.8 mmol/L (3.5-5.5); Total Protein, Blood 5.3 g/dL (6.4-8.2)
--- NOTE | 2024-09-07 06:22 | NUR ---
PT STABLE THROUGHOUT SHIFT. PT AOX4, INDEPENDENT. NO S/S BLOOD GLUCOSE PROBLEMS.
[2024-09-07 07:33] VITALS: BP 133/86
[2024-09-07 11:01] VITALS: BP 118/78
--- NOTE | 2024-09-07 11:05 | NUR ---
DISCHARGE NOTE this rn assumed care at 0700. vital signs stable. tele sinus tach 100s. patient is alert and oriented x4. neuro is intact. perrla. patient is able to make needs known and uses call light appropriately. independent in the room. patient denies pain, chest pain/pressure or shortness of breath. see shift assessment for further detials. Md Cash in to see patient and discussed plan of care and going home due to blood sugars being in the low 200s. patient agrees to this plan. this rn went over discharge instructions with patient and patient family at bedside. patient and patient family verbalized understanding and importance of checking blood sugar levels and accurately adminstering insulin. this rn went over long acting and short acting insulin and how many units to take for each. this rn went over follow up appointment. patient left with all belongings and in no distress
== END 2024-09-07 11:02 | disposition home or self-care (01) | DRG 639 ==
LOC: ER 09:46 → ICUE 14:03 → ERHOLD 14:03 → ICUE 17:37 → PCU 09-05 20:01
PROVIDERS: Emergency Medicine; Physician Assistant; ADMIT Family Medicine
DX: E11.10 Type 2 diabetes mellitus with ketoacidosis without coma (principal); I10 Essential (primary) hypertension; E78.5 Hyperlipidemia, unspecified; F31.9 Bipolar disorder, unspecified; F41.1 Generalized anxiety disorder; D50.9 Iron deficiency anemia, unspecified; E66.01 Morbid (severe) obesity due to excess calories; Z28.21 Immunization not carried out because of patient refusal; E11.42 Type 2 diabetes mellitus with diabetic polyneuropathy; H52.229 Regular astigmatism, unspecified eye; G47.30 Sleep apnea, unspecified; D64.9 Anemia, unspecified; Z98.51 Tubal ligation status; Z88.8 Allergy status to other drugs, medicaments and biological substances; Z79.4 Long term (current) use of insulin; Z79.84 Long term (current) use of oral hypoglycemic drugs; Z79.899 Other long term (current) drug therapy
CPT/HCPCS: 36415; 36600; 71045; 80048; 80053; 81001; 82010; 82803; 82947; 83605; 83690; 83930; 84145; 85025; 86140; 87086; 93005; 93010; 94760; 96361; 96374; 96375; 99285-25; A9270; C1751; J1200; J1650; J1815; J2405; J7030; J7042; J7120

== ENCOUNTER 2024-11-14 09:50 | Emergency (ER) | payer OTHER ==
[~2024-11-14] VITALS: Ht 162.6 cm; Wt 92.5 kg
[~2024-11-14 09:50] MED LIST changes: +ARIPIPRAZOLE15 M3 PO; +DULOXETINE HCL60 M1 PO; +OZEMPIC2 MG/0.75 SC; +Oxybutynin Chlo10 MG PO; +STEGLATRO15 MG PO
[2024-11-14 11:20] LABS: BASOPHILS ABSOLUTE AUTO 0.06 K/mm3 (0.00-0.23); BASOPHILS PERCENT AUTO 1 % (0-2); EOSINOPHILS ABSOLUTE AUTO 0.26 K/mm3 (0.00-0.68); EOSINOPHILS PERCENT AUTO 2 % (0-6); Hematocrit 43.1 % (33.0-51.0); Hemoglobin 13.7 g/dL (11.5-16.0); IMMATURE GRAN ABSOLUTE AUTO 0.15 K/mm3 (0.00-0.10); IMMATURE GRAN PERCENT AUTO 1 % (0-1); LYMPHOCYTES ABSOLUTE AUTO 1.71 K/mm3 (0.84-5.20); LYMPHOCYTES PERCENT AUTO 15 % (21-46); MONOCYTES ABSOLUTE AUTO 1.08 K/mm3 (0.16-1.47); MONOCYTES PERCENT AUTO 9 % (4-13); Mean Corpuscular HGB 26.1 pg (26.0-34.0); Mean Corpuscular HGB Conc 31.8 g/dL (31.5-36.5); Mean Corpuscular Volume 82 fL (80-100); Mean Platelet Volume 9.3 fL (9.1-12.4); NEUTROPHILS PERCENT AUTO 72 % (41-73); Platelet Count 284 K/mm3 (150-400); RDW Coefficient Variation 12.7 % (11.7-14.2); RDW Standard Deviation 38.5 fL (35.1-46.3); Red Blood Cell Count 5.25 M/mm3 (3.80-5.20); White Blood Cell Count 11.76 K/mm3 (4.00-11.30)
[2024-11-14 11:49] LABS: Albumin, Blood 2.6 g/dL (3.4-5.0); Albumin/Globulin Ratio 0.5 (0.8-1.8); Bilirubin, Total 0.3 mg/dL (0.1-1.0); Bun/Creatinine Ratio 36.9 (12.0-20.0); Calcium, Blood 10.4 mg/dL (8.5-10.1); Creatinine, Blood 0.6 mg/dL (0.40-1.00); Globulin, Blood 5.4 g/dL (2.2-4.0); Potassium, Blood 4.2 mmol/L (3.5-5.5)
[2024-11-14] MEDS ORDERED: Ketorolac Tromethamine 15mg Vial IV ONE (12:00)
[2024-11-14] MEDS ORDERED: NS 1,000 ML IV SCH (12:00)
[2024-11-14 12:06] LABS: Source, Urine Clean Catch
[2024-11-14 12:27] LABS: Appearance, Urine Cloudy (Clear); Bilirubin, Urine Neg (Neg); Blood, Urine 2+ (Neg); Color, Urine Yellow (P-Yellow); Glucose Qualitative, Urine 4+ (Neg); Ketones, Urine 4+ (Neg); Leukocyte Esterase, Urine 3+ (Neg); Nitrite, Urine Pos (Neg); Protein, Urine 1+ (Neg); Specific Gravity, Urine 1.015 (1.003-1.022); Urobilinogen, Urine NORM (Normal)
[2024-11-14 12:59] LABS: Bacteria Mod /hpf; Squamous Epithelial Cells Few /hpf (Few); Yeast/Fungi Urine Few /hpf
[2024-11-14] MEDS ORDERED: CefTRIAXone Sodium 2,000 MG in NS 100 ML IV ONE (14:30)
[2024-11-14] MEDS ORDERED: OxyCODONE 5 mg/Acetamin 325 mg TABLET PO ONE (14:30)
[2024-11-14 15:08] VITALS: BP 116/77
[2024-11-14] MEDS ORDERED: CEFP200 PO (15:25)
== END 2024-11-14 16:00 | disposition home or self-care (01) ==
LOC: ER 09:50
PROVIDERS: Student in an Organized Health Care Education/Training Program
DX: L02.31 Cutaneous abscess of buttock (principal); E11.9 Type 2 diabetes mellitus without complications; N39.0 Urinary tract infection, site not specified; Z91.81 History of falling
CPT/HCPCS: 10061; 36415; 72193; 80053; 81001; 83605; 85025; 87040; 87070; 87075; 87077; 87086; 87147; 87186; 87205; 96374-59; 96375-59; 99284-25; A9270; J0696; J1885; J7030; Q9967